=== PATIENT | male | born 1935 | race Caucasian/White ===

== ENCOUNTER → 2018-12-11 | Outpatient (REF) | payer MEDICARE, BC ==
[~2018-12-11] MED LIST: BAYER ASPIRIN325 MG PO; CIPRO500 MG PO; COZAAR100 MG PO; DILAUDID2 MG OR; KEFLEX500 MG PO; LEVOTHROID88 MCG PO
[2018-12-11 09:59] LABS: ALBUMIN 3.9 g/dL (3.2-5.0); ALKALINE PHOSPHATASE 84 u/l (38-126); ANION GAP 12 (6-22 (CALC)); BUN 22 mg/dL (8-23); BUN/CREATININE RATIO 19 (12-20 (CALC)); CARBON DIOXIDE 29 mmol/l (22-30); CHLORIDE 105 mmol/l (95-108); CREATININE 1.2 mg/dL (0.7-1.3); GFR 58 ML/MIN (>=60 (CALC)); GFR FOR AFR.AMER. > 60 ML/MIN (>=60 (CALC)); POTASSIUM 4.4 mmol/l (3.5-5.1); SGOT/AST 18 u/l (19-48); SODIUM 141 mmol/l (137-146); TOTAL PROTEIN 6.2 g/dL (6.3-8.2)
[2018-12-11 10:27] LABS: TSH, 3RD GENERATION 2.51 uIU/mL (0.47 - 4.68)
== END | disposition home or self-care (01) ==
LOC: LAB 08:49
PROVIDERS: ATTEND Internal Medicine
DX: E11.69 Type 2 diabetes mellitus with other specified complication (principal)

== ENCOUNTER 2023-10-21 12:17 | Emergency (ER) | payer MEDICARE, BC ==
[~2023-10-21] VITALS: Ht 170.2 cm; Wt 83.6 kg
[2023-10-21 13:00] VITALS: BP 159/85
[2023-10-21 13:30] VITALS: BP 158/79
[2023-10-21 13:59] LABS: BASO% 0.4 % (0-3); EOS% 1.9 % (0-8); HEMATOCRIT 47.1 % (39.0-50.0); HEMOGLOBIN 15.3 g/dl (14.0-18.0); IMMATURE GRANULOCYTES 0.6 % (0.0-5.0); LYMPH% 17.7 % (15-41); MEAN CELL VOLUME 91.6 fL CALC (80.0-100.0); MEAN CORPUSCULAR HGB 29.8 pG CALC (26.0-32.0); MEAN CORPUSCULAR HGB CONC 32.5 g/dL CAL (32.0-36.0); MONO% 10.5 % (2-13); NEUT# 6.46 thou/uL (1.82-7.42); NEUT% 68.9 % (42-76); RED BLOOD COUNT 5.14 mill/uL (4.70-6.10); RED CELL DISTRI WIDTH 12.8 % (11.5-15.5)
[2023-10-21 14:00] VITALS: BP 163/82
[2023-10-21 14:13] LABS: ALBUMIN 3.7 g/dL (3.2-5.0); ALKALINE PHOSPHATASE 116 u/l (38-126); ANION GAP 9 (6-22 (CALC)); BILIRUBIN, TOTAL 1.2 mg/dL (0.2-1.3); BUN 15 mg/dL (8-23); BUN/CREATININE RATIO 16 (12-20 (CALC)); CARBON DIOXIDE 28 mmol/l (22-30); CHLORIDE 104 mmol/l (95-108); CREATININE 0.9 mg/dL (0.7-1.3); GFR FOR AFR.AMER. > 60 ML/MIN (>=60 (CALC)); GFR OTHER RACES > 60 ML/MIN (>=60 (CALC)); POTASSIUM 3.9 mmol/l (3.5-5.1); SGOT/AST 21 u/l (19-48); SODIUM 138 mmol/l (137-146); TOTAL PROTEIN 6.1 g/dL (6.3-8.2)
[2023-10-21 14:20] VITALS: BP 163/82
== END 2023-10-21 14:40 | disposition home or self-care (01) ==
LOC: ED 12:17
PROVIDERS: Family Medicine
DX: I82.432 Acute embolism and thrombosis of left popliteal vein (principal); I10 Essential (primary) hypertension; E11.9 Type 2 diabetes mellitus without complications; Z86.718 Personal history of other venous thrombosis and embolism

== ENCOUNTER 2023-11-05 17:27 | Emergency (ER) | payer MEDICARE, BC ==
[~2023-11-05] VITALS: Ht 170.2 cm; Wt 83.9 kg
[2023-11-05 18:39] VITALS: BP 116/81
== END 2023-11-05 18:41 | disposition home or self-care (01) ==
LOC: ED 17:27
PROC: 0H98XZZ Drainage of Buttock Skin, External Approach (ICD-10-PCS; principal; 2023-11-05)
DX: L02.31 Cutaneous abscess of buttock (principal); L03.317 Cellulitis of buttock; I10 Essential (primary) hypertension; E11.9 Type 2 diabetes mellitus without complications; Z86.718 Personal history of other venous thrombosis and embolism